=== PATIENT | female | born 1950 | race Caucasian/White ===

== ENCOUNTER 2020-04-21 14:21 | Emergency (ER) | payer MEDICARE, BC ==
[2020-04-22 00:22] LABS: SARS-CoV-2 MS2 Positive; SARS-CoV-2 N Gene Negative; SARS-CoV-2 S Gene Negative; SARS-CoV-2 by NAA Not Detected (NotDetected); SARS-CoV-2 orf1ab Negative
== END 2020-04-21 15:10 | disposition home or self-care (01) ==
LOC: ERS 14:21 → EDBD 14:21 → ERS 15:10
DX: R05 Cough (principal); R19.7 Diarrhea, unspecified; Z20.828 Contact with and (suspected) exposure to other viral communicable diseases; I10 Essential (primary) hypertension; Z79.899 Other long term (current) drug therapy
CPT/HCPCS: 99283; U0003; 87635

== ENCOUNTER 2022-04-20 11:02 | Outpatient (CLI) | payer MEDICARE, BC | END 2022-04-20 11:03 | disposition home or self-care (01) | LOC: BICCT 11:02 | PROVIDERS: ATTEND Physician Assistant | DX: I60.9 Nontraumatic subarachnoid hemorrhage, unspecified (principal) | CPT/HCPCS: 70450 ==